=== PATIENT | male | born 1935 | race Caucasian/White ===

== ENCOUNTER 2019-10-28 11:01 | Emergency (ER) | payer OTHER, MEDICARE ==
[~2019-10-28] VITALS: Ht 177.8 cm; Wt 86.2 kg
[2019-10-28] MEDS ORDERED: THERA-D2000 UNIT PO (11:29)
[2019-10-28] MEDS ORDERED: FISH OIL 1,2001 EAC1 PO (11:29)
[2019-10-28] MEDS ORDERED: ASPI81CH PO (11:29)
[2019-10-28] MEDS ORDERED: Colace100 MG PO (11:30)
[2019-10-28] MEDS ORDERED: Hair, Skin & N1 EACH PO (11:30)
[2019-10-28 11:31] LABS: BASOPHILS ABSOLUTE AUTO 0.02 K/mm3 (0.00-0.23); BASOPHILS PERCENT AUTO 0 % (0-2); EOSINOPHILS ABSOLUTE AUTO 0.03 K/mm3 (0.00-0.68); EOSINOPHILS PERCENT AUTO 1 % (0-6); Hematocrit 43.3 % (37.0-53.0); Hemoglobin 14.3 g/dL (13.5-17.5); IMMATURE GRAN ABSOLUTE AUTO 0.01 K/mm3 (0.00-0.10); IMMATURE GRAN PERCENT AUTO 0 % (0-1); LYMPHOCYTES ABSOLUTE AUTO 3.26 K/mm3 (0.84-5.20); LYMPHOCYTES PERCENT AUTO 57 % (21-46); MONOCYTES ABSOLUTE AUTO 0.45 K/mm3 (0.16-1.47); MONOCYTES PERCENT AUTO 8 % (4-13); Mean Corpuscular HGB 32.6 pg (26.0-34.0); Mean Corpuscular Volume 99 fL (80-100); Mean Platelet Volume 10.7 fL (9.1-12.4); NEUTROPHILS ABSOLUTE AUTO 1.94 K/mm3 (1.96-9.15); NEUTROPHILS PERCENT AUTO 34 % (41-73); Platelet Count 154 K/mm3 (150-400); RDW Coefficient Variation 13.3 % (11.7-14.2); RDW Standard Deviation 48.3 fL (35.1-46.3); Red Blood Cell Count 4.38 M/mm3 (4.30-5.90); White Blood Cell Count 5.71 K/mm3 (4.00-11.30)
[2019-10-28] MEDS ORDERED: ASPIRIN-DIPYRI1 EACH PO (11:31)
[2019-10-28] MEDS ORDERED: FERROUS SULFAT325 M1 PO (11:32)
[2019-10-28 11:48] LABS: Alanine Aminotransfer (ALT/SGP 23 U/L (12-78); Albumin, Blood 3.7 g/dL (3.4-5.0); Alk Phos 63 U/L (50-136); Anion Gap 5 mmol/L (6-16); Aspartate Aminotrans (AST/SGOT 25 U/L (12-37); Bilirubin, Total 0.4 mg/dL (0.1-1.0); Blood Urea Nitrogen 20 mg/dL (8-24); Bun/Creatinine Ratio 17.9 (12.0-20.0); CO2, Blood 26 mmol/L (21-32); Calcium, Blood 9.4 mg/dL (8.5-10.1); Chloride, Blood 111 mmol/L (98-108); Creatinine, Blood 1.12 mg/dL (0.60-1.20); Globulin, Blood 3.8 g/dL (2.2-4.0); Glomerular Filtration Rate >60 (60-); Glucose, Blood 141 mg/dL (70-99); Potassium, Blood 4.1 mmol/L (3.5-5.5); Sodium, Blood 142 mmol/L (136-145); Total Protein, Blood 7.5 g/dL (6.4-8.2)
--- NOTE | 2019-10-28 14:38 | NUR ---
Met with patients daughter. Pt newly arrived from sons house to live with daughter. 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 He is grieving the of his , the decline of his healty and loss of independece. Daughter fears he family will not be able to manage his care needs and will place him in a home. Patients son need some respite. Daughters plan is to keep patient in her home and hire cargivers pt has resources to pay. Pt does not have a pcp. [facility] [place] but timothy lost heir physician. Plan is to get him exptablished at [facility]. Will have customer care managertravel agency manager them. He is not hospice appropriate but if he declines further he may qualify. Pt stating he has little will to live this way and is suffering. he does not want medical care. Will assist with advance care planning information.
== END 2019-10-28 14:19 | disposition home or self-care (01) ==
LOC: ER 11:01
PROVIDERS: Emergency Medicine
DX: I69.351 Hemiplegia and hemiparesis following cerebral infarction affecting right dominant side (principal); F43.21 Adjustment disorder with depressed mood; Z79.899 Other long term (current) drug therapy; Z79.82 Long term (current) use of aspirin
CPT/HCPCS: 70450; 80053; 85025; 93005; 93010; 99285-25